=== PATIENT | male | born 1940 | race Caucasian/White ===

== ENCOUNTER 2017-12-27 08:11 | Day surgery (SDC) | payer MEDICARE, BC ==
[2017-12-27] MEDS ORDERED: Lactated Ringers 1,000 ML IV SCH (09:00)
[2017-12-27] MEDS ORDERED: fentaNYL 100 MCG/2 ML SDV ONE (09:09)
[2017-12-27] MEDS ORDERED: Propofol 200 MG/20 ML SDV ONE ×2 (09:09→10:41)
--- NOTE | 2017-12-28 08:21 | OR ---
DATE OF PROCEDURE: 12/27/2017 PREOPERATIVE DIAGNOSIS: Colon cancer screening. POSTOPERATIVE DIAGNOSES: 1. Diverticulosis. 2. Right colon polyps. PROCEDURES PERFORMED: Colonoscopy to the cecum with biopsy resection of proximal right colon polyp and biopsy resection of mid-right colon polyp. SURGEON: Tashi Gasca MD. ANESTHESIA: IV anesthesia with monitored anesthesia care. INDICATION: This 77-year-old white male is referred for a colonoscopy for colon cancer screening. He says his last colonoscopic exam was done ten years ago. I counseled him for the procedure, including risks and alternatives, and he gave his informed consent to proceed. DESCRIPTION OF PROCEDURE: The patient was placed in the left lateral decubitus position. IV anesthesia was administered by the Anesthesia Service. Time-out was held. A rectal exam was performed, which was unremarkable. The flexible video Olympus colonoscope was introduced through his anus, up his rectum and out his colon all the way to the cecum. En route, we saw multiple left-sided diverticula. There was no bleeding or inflammation associated with any of them. Once the cecum was reached, the scope was slowly withdrawn examining the mucosa throughout. In the proximal right colon, we saw a small polyp, which was removed with a couple of bites of the biopsy forceps. The scope was brought back a little and in the more midportion of the right colon, a larger polyp was seen. This was also removed with the biopsy forceps. The scope was then withdrawn further with no other neoplastic lesions seen. No additional abnormalities were noted, other than the previously mentioned diverticula. The scope was retroflexed in the rectum with the distal rectum appearing unremarkable. The scope was straightened and removed. He tolerated the procedure well. Tashi Gasca MD /[id number]
== END 2017-12-27 11:38 | disposition home or self-care (01) ==
LOC: JP.SDS 08:11
PROVIDERS: ATTEND Surgery
DX: Z12.11 Encounter for screening for malignant neoplasm of colon (principal); D12.2 Benign neoplasm of ascending colon; K57.30 Diverticulosis of large intestine without perforation or abscess without bleeding; I10 Essential (primary) hypertension; E78.5 Hyperlipidemia, unspecified
CPT/HCPCS: 45380; J2704; J3010; J7120; 88305

== ENCOUNTER 2020-11-28 06:43 | Day surgery (SDC) | payer BC, MEDICARE ==
[2020-11-28] MEDS ORDERED: Propofol 200 MG/20 ML SDV ONE (07:24)
[2020-11-28] MEDS ORDERED: Midazolam 1 MG/ML 2 ML SDV ONE (07:24)
[2020-11-28] MEDS ORDERED: fentaNYL 100 MCG/2 ML SDV ONE (07:24)
[2020-11-28] MEDS ORDERED: Sodium Chloride 0.9% 1,000 ML IV SCH (07:30)
--- NOTE | 2020-11-28 14:08 | OR ---
DATE OF PROCEDURE: 11/28/2020 SURGEON: Jose A Oviedo MD PROCEDURE: Colonoscopy. FINDINGS: Diverticulosis, moderate to heavy, mostly concentrated in the sigmoid colon, but distributed throughout entire colon. PREOPERATIVE DIAGNOSIS: Screening colonoscopy. POSTOPERATIVE DIAGNOSIS: Screening colonoscopy. RISKS: Risks, benefits, alternatives, and limitations including, but not limited to infection, bleeding, perforation, false positives and false negatives were explained to the patient who wished to proceed. PROCEDURE IN DETAIL: The patient was placed in left lateral decubitus position. Digital rectal exam was performed without abnormality. Scope was introduced and advanced atraumatically to the ileocecal valve. A photo was taken of the appendiceal orifice. Scope was brought back to the ascending, transverse, descending colon, and retroflexed. The diverticulosis would be described as moderate to heavy with distribution of tics throughout the entire colon but mostly densely concentrated in a classic pattern in the sigmoid colon. No abnormalities on retroflexion. No polyps, no inflammation, no masses. The prep was marginal, approximately 85% to 90% of the luminal surface could be seen with solid and liquid stool remaining. Greater than 8 minutes was spent removing the scope. Recommend repeat colonoscopy in 10 years unless family history is reported, then 5 years. Jose A Oviedo MD /[id number]
== END 2020-11-28 09:27 | disposition home or self-care (01) ==
LOC: JP.SDS 06:43
PROVIDERS: ATTEND Surgery
DX: Z12.11 Encounter for screening for malignant neoplasm of colon (principal); K57.30 Diverticulosis of large intestine without perforation or abscess without bleeding; I10 Essential (primary) hypertension
CPT/HCPCS: G0121; J2250; J2704; J3010; J7030

== ENCOUNTER 2022-07-24 05:57 | Day surgery (SDC) | payer MEDICARE ==
[2022-07-24] MEDS ORDERED: Bupivacaine 0.5%/EPINEPHrine 1:200,000 50 ML MDV ONE (06:40)
[2022-07-24] MEDS ORDERED: Lactated Ringers 1,000 ML IV SCH (07:00)
[2022-07-24] MEDS ORDERED: Acetaminophen 500 MG Tab PO ONE (07:00)
[2022-07-24] MEDS ORDERED: Propofol 200 MG/20 ML SDV ONE ×2 (07:16→08:01)
[2022-07-24] MEDS ORDERED: Midazolam 1 MG/ML 2 ML SDV ONE (07:16)
[2022-07-24] MEDS ORDERED: fentaNYL 50 MCG/ML SDV ONE (07:16)
[2022-07-24] MEDS ORDERED: ceFAZolin 2 GM in Sodium Chloride 0.9% 50 ML IV ONE (07:30)
[2022-07-24] MEDS ORDERED: Hydrogen Peroxide 3% Top Soln 240 ML Bottle ONE (07:38)
[2022-07-24] MEDS ORDERED: Lidocaine 1% with EPINEPHrine 1:100,000 50 ML MDV ONE (07:41)
[2022-07-24] MEDS ORDERED: Bacitracin Oint 1 GM U/D Packet ONE (08:11)
== END 2022-07-24 09:36 | disposition home or self-care (01) ==
LOC: JP.SDS 05:57
PROVIDERS: ATTEND Student in an Organized Health Care Education/Training Program
DX: D04.4 Carcinoma in situ of skin of scalp and neck (principal); L57.0 Actinic keratosis; I10 Essential (primary) hypertension; E78.00 Pure hypercholesterolemia, unspecified; R73.9 Hyperglycemia, unspecified; G62.9 Polyneuropathy, unspecified; F41.9 Anxiety disorder, unspecified; Z79.899 Other long term (current) drug therapy; Z79.82 Long term (current) use of aspirin; Z98.890 Other specified postprocedural states
CPT/HCPCS: 13120; 21011; A9270; J0690; J2250; J2704; J3010; J3490; J7120